=== PATIENT | female | born 1995 | race Caucasian/White ===

== ENCOUNTER 2020-06-25 17:38 | Emergency (ER) | payer BC ==
--- NOTE | 2020-06-25 19:52 | ER Document Report ---
ED Medical Screen (RME) - General Chief Complaint: Abdominal Pain Stated Complaint: 5WKS PREG/POS ECTOPIC/ABD PAIN Time Seen by Provider: 06/25/20 19:48 Mode of Arrival: Ambulatory Information source: Patient Notes: 25-year-old female patient presenting to the emergency department chief complaint of right lower quadrant abdominal pain in the setting of . Patient reports history of PCOS, states she was diagnosed with infertility. She states 2 days ago she had a positive home test. She has now been having right lower quadrant abdominal pain. She has not had any vaginal bleeding. She wants to make sure she does not have an ectopic . Exam deferred until patient is in a room however patient is alert, oriented, no acute distress noted. I have greeted and performed a rapid initial assessment of this patient. A comprehensive ED assessment and evaluation of the patient, analysis of test results and completion of the medical decision making process will be conducted by additional ED providers. I have specifically instructed the patient or family members with the patient to immediately return to any nursing staff should anything change in the patient's condition or with their chief complaint. - Related Data Allergies/Adverse Reactions: No Known Allergies Allergy (Unverified 06/25/20 19:43) Physical Exam - Vital signs Vitals: Temp Pulse Resp BP Pulse Ox 98.3 F 74 16 129/69 H 100 06/25/20 18:33 06/25/20 18:33 06/25/20 18:33 06/25/20 18:33 06/25/20 18:33 Course - Vital Signs Vital signs: Temp Pulse Resp BP Pulse Ox 98.3 F 74 16 129/69 H 100 06/25/20 18:33 06/25/20 18:33 06/25/20 18:33 06/25/20 18:33 06/25/20 18:33
--- NOTE | 2020-06-25 20:51 | RADIOLOGY REPORT (SQ) ---
US PELVIS HISTORY: Right lower quadrant pain. 5 weeks . COMPARISON: None. TECHNIQUE: Grayscale, color Doppler, and spectral Doppler ultrasound images of the pelvis were obtained. FINDINGS: The uterus is anteverted and measures 8.3 x 4.5 x 4.1 cm. No intrauterine gestational sac is seen. The endometrium is 9 mm in thickness. Cervix is 2.4 cm and is closed. The ovaries are normal in size with the right measuring 3.3 x 2.4 cm and the left ovary measuring 3.4 x 2.6 cm. Normal color Doppler blood flow is seen in both ovaries. Trace free fluid in the pelvic cul-de-sac. IMPRESSION: No intrauterine is seen. Correlate with beta hCG values and consider short-term follow-up ultrasound imaging.
[2020-06-25] MEDS ORDERED: ENOXAPARIN SODIUM INJ 80 MG/0.8 ML DISP.SYRIN SUBCUT SCH (22:15)
--- NOTE | 2020-06-25 23:15 | ER Document Report ---
ED GI/ - General Chief Complaint: Abdominal Pain Stated Complaint: 5WKS PREG/POS ECTOPIC/ABD PAIN Time Seen by Provider: 06/25/20 19:48 Primary Care Provider: [facility] [Provider Group] - 06/28/20 Mode of Arrival: Ambulatory Notes: Patient is a 25-year-old G1, P0 female who presents emergency department with a chief complaint of pain in her right lower abdominal quadrant. Patient states that she had a positive test 2 days ago. Patient states that her pain is a cramping sensation that comes and goes. Patient has a history of PCOS, IBS, stable brain cyst, migraines, and depression. Patient denies any other symptoms. She also was once told that she had infertility. Patient denies any bleeding. Last menstrual cycle was May 18. - Related Data Allergies/Adverse Reactions: No Known Allergies Allergy (Unverified 06/25/20 19:43) Past Medical History - General Information source: Patient - Social History Smoking Status: Former Smoker Frequency of alcohol use: None Drug Abuse: None Family History: Reviewed & Not Pertinent Patient has homicidal ideation: No Neurological Medical History: Reports: Hx Migraine Psychiatric Medical History: Reports: Hx Depression Past Surgical History: Reports: Hx Nose Surgery - rhinoplasty Review of Systems - Review of Systems Notes: REVIEW OF SYSTEMS: CONSTITUTIONAL : Denies recent illness. Denies recent unintentional weight loss. Denies fever, chills, or sweats. EENT: Denies eye, ear, throat, or mouth pain, discharge, or symptoms. Denies nasal or sinus congestion. CARDIOVASCULAR: Denies chest pain. RESPIRATORY: Denies shortness of breath, cough, congestion, difficulty breathing, or wheezing. GASTROINTESTINAL: Denies nausea, vomiting, and diarrhea. Denies constipation. See HPI. GENITOURINARY: Denies difficulty urinating, burning, blood in urine, urgency or frequency. FEMALE GENITOURINARY: See HPI. MUSCULOSKELETAL: Denies neck and back pain. Denies joint pain or swelling. SKIN: Denies rash, itchiness, or lesions HEMATOLOGIC : Denies easy bruising or bleeding. LYMPHATIC: Denies swollen, painful, enlarged glands. NEUROLOGICAL: Denies no numbness or tingling denies weakness. Denies headache. Denies altered mental status. Denies alteration in speech. PSYCHIATRIC: Denies stress, anxiety, alteration in sleep patterns, or depression. All other systems reviewed and negative. Physical Exam - Vital signs Vitals: Temp Pulse Resp BP Pulse Ox 98.3 F 74 16 129/69 H 100 06/25/20 18:06/25/20 18:06/25/20 18:06/25/20 18:06/25/20 18:33 - Notes Notes: PHYSICAL EXAMINATION: GENERAL: Appears well, healthy, well-nourished, no acute distress. HEAD: Normocephalic, atraumatic. EYES: PERRL, conjunctiva normal, all extraocular movements intact, sclera nonicteric ENT: Moist mucous membranes. NECK: Supple, no noticeable swelling, redness, rash. Normal range of motion. LUNGS: Equal breath sounds bilaterally and clear to auscultation. No wheezes rales or rhonchi. CARDIOVASCULAR: S1-S2, regular rate, regular rhythm. Radial pulses 2+, normal. ABDOMEN: Normoactive bowel sounds. Soft, nontender, no guarding, no rebound tenderness, and no masses palpated. EXTREMITIES: Normal strength and range of motion, no pitting or edema. No cyanosis. NEUROLOGICAL: Moves all extremities upon command. Strength 5/5 in all extremities. PSYCH: Normal mood, normal affect. SKIN: Warm, dry. No rash, lesions, ulcerations noted. Normal skin turgor. Course - Re-evaluation Re-evalutation: 06/25/20 23:10 Patient ultrasound does not show an intrauterine gestational sac at this time. With her being only 5 weeks, I suspect that either it is too early to identify her . Patient is nontoxic in appearance. She is having a normal conversation with me and smiling. hCG level is 490. I advised the patient to have her labs drawn in 2 days on an outpatient basis and follow-up with [facility]. Advised that if her pain gets worse, to return to the emergency department. Based off of physical exam, the low suspicion for appendicitis, mesenteric ischemia, or any life-threatening etiology at this time. She is in agreement with this plan. Follow-up precautions were given. Verbal discharge instructions were given to the patient. They verbalized understanding. They are stable for discharge. - Vital Signs Vital signs: Temp Pulse Resp BP Pulse Ox 98.3 F 74 16 129/69 H 100 06/25/20 18:33 06/25/20 18:33 06/25/20 18:33 06/25/20 18:33 06/25/20 18:33 - Laboratory Laboratory results interpreted by me: 06/25/20 20:04 Beta HCG, Quant 490.70 H Discharge - Discharge Clinical Impression: Positive test, Pelvic pain Condition: Stable Disposition: HOME, SELF-CARE Additional Instructions: You were seen today in the emergency department for pain in your right lower abdomen. Your ultrasound does not show anything at this time, but you may be too early to detect the . Your labs show that you are . You take Tylenol as needed for pain. Have your labs redrawn on Sunday on an outpatient basis if your pain gets worse, check into the emergency department. Do not have sex or place anything in your vagina to reduce the risk of miscarriage. Follow-up with [facility] on Sunday. Forms: Follow-Up Laboratory Testing, Return to Work Referrals: [facility] [Provider Group] - 06/28/20
[2020-06-25 23:46] VITALS: BP 134/72
== END 2020-06-25 23:46 | disposition home or self-care (01) ==
LOC: ER 17:38
DX: O26.891 Other specified pregnancy related conditions, first trimester (principal); R10.2 Pelvic and perineal pain; O99.281 Endocrine, nutritional and metabolic diseases complicating pregnancy, first trimester; E28.2 Polycystic ovarian syndrome; Z3A.01 Less than 8 weeks gestation of pregnancy; Z87.891 Personal history of nicotine dependence
CPT/HCPCS: 36415; 76817; 84702; 99284

== ENCOUNTER → 2020-06-27 | Outpatient (CLI) | payer BC | LOC: LAB 13:09 | PROVIDERS: ATTEND Nurse Practitioner | DX: O46.90 Antepartum hemorrhage, unspecified, unspecified trimester (principal); Z3A.00 Weeks of gestation of pregnancy not specified | CPT/HCPCS: 36415; 84702 ==

== ENCOUNTER 2020-09-11 20:54 | Emergency (ER) | payer BC ==
--- NOTE | 2020-09-11 22:11 | ER Document Report ---
ED Medical Screen (RME) - General Chief Complaint: OB Problem (>20wk) Stated Complaint: CRAMPING/THINKS MUCUS PLUG IS GONE/16 WEEKS PREGNA Time Seen by Provider: 09/11/20 21:53 - HPI Notes: Patient is a 25-year-old female who is 16 weeks and presents for clear discharge and abdominal cramping. Patient states 3 days ago she noticed clear fluid and initially thought she had peed herself. She states her underwear has remained wet for the past 3 days. She states today "she thought she lost her mucous plug". She also reports abdominal cramping that started today. She denies vaginal bleeding. G1, P0. - Related Data Allergies/Adverse Reactions: No Known Allergies Allergy (Unverified 06/25/20 19:43) Past Medical History Neurological Medical History: Reports: Hx Migraine Psychiatric Medical History: Reports: Hx Depression Past Surgical History: Reports: Hx Nose Surgery - rhinoplasty Physical Exam - Vital signs Vitals: Temp Pulse Resp BP Pulse Ox 98.4 F 78 14 121/96 H 100 09/11/20 21:21 09/11/20 21:21 09/11/20 21:21 09/11/20 21:21 09/11/20 21:21 - Abdominal Inspection: Gravid female Tenderness: Nontender Course - Re-evaluation Re-evalutation: I have greeted and performed a rapid initial assessment of this patient. A comprehensive ED assessment and evaluation of the patient, analysis of test results and completion of medical decision making process will be conducted by an additional ED providers. - Vital Signs Vital signs: Temp Pulse Resp BP Pulse Ox 98.4 F 78 14 121/96 H 100 09/11/20 21:21 09/11/20 21:21 09/11/20 21:21 09/11/20 21:21 09/11/20 21:21
--- NOTE | 2020-09-11 23:37 | RADIOLOGY REPORT (SQ) ---
EXAM DESCRIPTION: U/S OB 14+ TRNABD 1GES W/O DOP RadLex: US FOLLOW UP CLINICAL HISTORY: 25 years Female; abdominal cramping; TECHNIQUE: Transabdominal obstetrical ultrasound was performed. COMPARISON: 06/25/2020 FINDINGS: Number of fetuses: Single position: Breech BPD: 16 weeks 4 days, 72% HC: 16 weeks 1 day, 39% AC: 16 weeks 5 days, 77% FL: 15 weeks 2 days, 17% EFW: 143 g HR: 149 BPM Anatomy: Unremarkable on this limited exam Amniotic fluid: XOCHITL 11.5 cm, adequate Cervix: 3.2 cm, closed Placenta: Posterior. No previa. No hematoma. IMPRESSION: 1. Single viable IUP. No acute findings. 2. EGA 16 weeks 1 day, ABHILASH 02/25/2021
[2020-09-12 00:23] LABS: ABSOLUTE EOSINOPHILS # (AUTO) 0.2 10^3/uL (0.0-0.6); ABSOLUTE LYMPHOCYTES (AUTO) 2.3 10^3/uL (0.5-4.7); ABSOLUTE MONOCYTES (AUTO) 0.7 10^3/uL (0.1-1.4); ABSOLUTE NEUT (AUTO) 9.9 10^3/uL (1.7-8.2); BASOPHILS % (AUTO) 0.1 % (0-2); EOSINOPHILS % (AUTO) 1.3 % (0-6); HEMATOCRIT 33.6 % (36.0-47.0); HEMOGLOBIN 11.6 g/dL (12.0-15.5); LYMPHOCYTES % (AUTO) 17.4 % (13-45); MEAN CORPUSCULAR HEMOGLOBIN 31.4 pg (27.0-33.4); MEAN CORPUSCULAR HGB CONC 34.5 g/dL (32.0-36.0); MEAN CORPUSCULAR VOLUME 91 fl (80-97); MONOCYTES % (AUTO) 5.1 % (3-13); PLATELET COUNT 222 10^3/uL (150-450); RED CELL DISTRIBUTION WIDTH 12.9 % (11.5-14.0); SEGMENTED NEUTROPHILS % (AUTO) 76.1 % (42-78); TOTAL CELLS COUNTED % (AUTO) 100 %
[2020-09-12 00:24] LABS: APPEARANCE,URINE CLEAR; BILIRUBIN,URINE NEGATIVE (NEGATIVE); COLOR,URINE YELLOW; GLUCOSE, URINE NEGATIVE (NEGATIVE); KETONES,URINE 20 mg/dL (NEGATIVE); LEUKOCYTE ESTERASE,URINE NEGATIVE (NEGATIVE); NITRITE,URINE NEGATIVE (NEGATIVE); PROTEIN,URINE NEGATIVE (NEGATIVE); URINE SPECIFIC GRAVITY 1.023
[2020-09-12 00:46] LABS: ALKALINE PHOSPHATASE 64 U/L (38-126); ANION GAP 9 (5-19); ASPARTATE AMINO TRANSFERASE 23 U/L (14-36); BILIRUBIN,DIRECT 0.2 mg/dL (0.0-0.4); BILIRUBIN,TOTAL 0.3 mg/dL (0.2-1.3); BLOOD UREA NITROGEN 9 mg/dL (7-20); CALCIUM 9.5 mg/dL (8.4-10.2); CARBON DIOXIDE 21 mmol/L (22-30); CHLORIDE 106 mmol/L (98-107); GLUCOSE 73 mg/dL (75-110); POTASSIUM 3.8 mmol/L (3.6-5.0); TOTAL PROTEIN 7.1 g/dL (6.3-8.2)
--- NOTE | 2020-09-12 01:44 | ER Document Report ---
ED GI/ - General Chief Complaint: OB Problem (<20wks) Stated Complaint: CRAMPING/THINKS MUCUS PLUG IS GONE/16 WEEKS PREGNA Time Seen by Provider: 09/11/20 21:53 Notes: Patient is a 25-year-old female, G1, P0 at 16 weeks gestation by first arrest ultrasound, but comes emergency department for chief complaint of intermittent lower abdominal cramping and some clear vaginal discharge. Patient states that she spoke to a relative of hers and she became concerned that maybe she had "lost my mucous plug". She denies vaginal bleeding, current pain, discolored discharge, concerns for STD, dysuria, fever/chills, nausea/vomiting. She is on vitamins and Metformin for PCOS. She also reports a history of IBS and states that she always has cramping in her lower abdomen. - Related Data Allergies/Adverse Reactions: No Known Allergies Allergy (Unverified 06/25/20 19:43) Past Medical History - General Information source: Patient - Social History Smoking Status: Never Smoker Chew tobacco use (# tins/day): No Frequency of alcohol use: None Drug Abuse: None Lives with: Family Family History: Reviewed & Not Pertinent Patient has homicidal ideation: No Neurological Medical History: Reports: Hx Migraine Psychiatric Medical History: Reports: Hx Depression Past Surgical History: Reports: Hx Nose Surgery - rhinoplasty - Immunizations Immunizations up to date: Yes Hx Diphtheria, Pertussis, Tetanus Vaccination: Yes Review of Systems - Review of Systems Constitutional: No symptoms reported EENT: No symptoms reported Cardiovascular: No symptoms reported Respiratory: No symptoms reported Gastrointestinal: See HPI Genitourinary: No symptoms reported Female Genitourinary: No symptoms reported Musculoskeletal: No symptoms reported Skin: No symptoms reported Hematologic/Lymphatic: No symptoms reported Neurological/Psychological: No symptoms reported Physical Exam - Vital signs Vitals: Temp Pulse Resp BP Pulse Ox 98.4 F 78 14 121/96 H 100 09/11/20 21:21 09/11/20 21:21 09/11/20 21:21 09/11/20 21:21 09/11/20 21:21 - Notes Notes: GENERAL: Alert, interacts well. No acute distress. HEAD: Normocephalic, atraumatic. EYES: Pupils equal, round, and reactive to light. Extraocular movements intact. ENT: Oral mucosa moist, tongue midline. Oropharynx unremarkable. Airway patent. NECK: Full range of motion. Supple. Trachea midline. No lymphadenopathy. LUNGS: Clear to auscultation bilaterally, no wheezes, rales, or rhonchi. No respiratory distress. Non-tender chest wall. HEART: Regular rate and rhythm. No murmur ABDOMEN: Soft, non-tender. Non-distended. EXTREMITIES: Moves all 4 extremities spontaneously. No edema, normal radial and dorsalis pedis pulses bilaterally. No cyanosis. BACK: no cervical, thoracic, lumbar midline tenderness. No saddle anesthesia, normal distal neurovascular exam. Moves all extremities in full range of motion. NEUROLOGICAL: Alert and oriented x3. Normal speech. Cranial nerves II through XII grossly intact. Strength 5/5 in all extremities. PSYCH: Normal affect, normal mood. SKIN: Warm, dry, normal turgor. No rashes or lesions noted. Course - Re-evaluation Re-evalutation: Patient looks great. She is smiling and well-appearing. Abdomen is soft and benign. She has no current symptoms. Vital signs unremarkable. I reviewed work-up with her including CBC, urinalysis, chemistry. This shows mild anemia, mild dehydration, no concerning specific findings. Ultrasound without concerning findings showing living intrauterine with normal parameters at this time. Cervix is closed. Patient states satisfaction, appreciation, no additional request. Stable and well-appearing at time of discharge. - Vital Signs Vital signs: Temp Pulse Resp BP Pulse Ox 99 F 67 18 101/56 L 99 09/12/20 01:52 09/12/20 01:52 09/12/20 01:52 09/12/20 01:52 09/12/20 01:52 - Laboratory Results Result Diagrams: 09/12/20 00:02 09/12/20 00:02 Laboratory Results Interpreted: 09/12/20 09/12/20 09/12/20 00:02 00:02 00:02 WBC 13.0 H RBC 3.70 L Hgb 11.6 L Hct 33.6 L Absolute Neuts (auto) 9.9 H Sodium 135.8 L Carbon Dioxide 21 L Creatinine 0.51 L Glucose 73 L Beta HCG, Quant 82727.00 H Urine Ketones 20 H Urine Urobilinogen 4.0 H Urine Ascorbic Acid 40 H Critical Laboratory Results Reviewed: No Critical Results - Radiology Results Critical Radiology Results Reviewed: No Critical Results Discharge - Discharge Clinical Impression: Abdominal cramping affecting Condition: Stable Disposition: HOME, SELF-CARE Additional Instructions: Your work-up shows some dehydration, no concerning findings are seen. Improve hydration, follow-up with MANAGER RN CASE for additional monitoring and management. Return for any concerning symptoms including severe pain, bleeding, fever, or any other concerning or worsening symptoms.
[2020-09-12 01:53] VITALS: BP 101/56
== END 2020-09-12 01:53 | disposition home or self-care (01) ==
LOC: ER 20:54
DX: O26.892 Other specified pregnancy related conditions, second trimester (principal); R10.30 Lower abdominal pain, unspecified; N89.8 Other specified noninflammatory disorders of vagina; O99.012 Anemia complicating pregnancy, second trimester; Z3A.16 16 weeks gestation of pregnancy
CPT/HCPCS: 36415; 76805; 80053; 81001; 84702; 85025; 99284